=== PATIENT | female | born 1970 | race Hispanic/Latino ===

== ENCOUNTER 2025-10-08 19:37 | Inpatient (IN) | payer OTHER ==
[~2025-10-08 19:37] MED LIST: Etomidate 40 MG (20 mL) VIAL ONE; Iopamidol-370 76% 500 ML MDV (1 ML CHARGE) ONE; Rocuronium Bromide 10 MG/ML (10ML VIAL) ONE
[2025-10-08 22:21] LABS: #Basophils Less than 0.03 10x3/uL (0.0-0.2); #Eosinophils Less than 0.03 10x3/uL (0.0-0.7); #Monocytes 1.10 10x3/uL (0.11-0.59); #Neutrophils 12.08 10x3/uL (1.40-6.50); %Basophils 0.1 % (0.0-1.0); %Eosinophils 0.0 % (0.0-10.0); %Lymphocytes 4.6 % (21.0-51.0); %Monocytes 7.9 % (0.0-10.0); %Neutrophils 87.2 % (42.0-75.0); Hematocrit 44.3 % (36.0-47.0); Hemoglobin 14.7 g/dL (12.0-16.0); Mean Corpuscular Hemoglobin 29.6 pg (27.0-31.0); Mean Corpuscular Volume 89.3 fL (78.0-98.0); Platelet Count 396 10x3/uL (130-400); Red Blood Cell (RBC) Count 4.96 mill/uL (4.20-5.40); White Blood Cell (WBC) Count 13.87 10x3/uL (4.8-10.8)
[2025-10-08] MEDS ORDERED: Ondansetron PF 4 MG/2 ML Vial ONE (22:30)
[2025-10-08 22:37] LABS: ALT (SGPT) 37 U/L (Less than 34); AST (SGOT) 27 U/L (11-34); Albumin 4.3 g/dL (3.1-4.5); Alkaline Phosphatase 115 U/L (40-110); Anion Gap 19 mmol/L (10-20); BUN (Urea Nitrogen) 29 mg/dL (9.8-20.1); Bilirubin, Total 1.5 mg/dL (0.3-1.2); Calc. Creatinine Clearance 0 mL/min (70-130); Calcium 12.2 mg/dL (7.8-10.44); Carbon Dioxide 27 mmol/L (22-29); Chloride 101 mmol/L (98-107); Globulin 4.6 g/dL (2.4-3.5); Glucose 182 mg/dL (70-105); Lipase 6 U/L (8-78); Magnesium 2.3 mg/dL (1.6-2.6); Potassium 4.8 mmol/L (3.5-5.1); Sodium 142 mmol/L (136-145)
[2025-10-09] MEDS: VANCOMYCIN 2 GRAM/400 ML BAG 2 GM in Premix 1 BAG IVPB SCH (03:52)
[2025-10-09 04:16] LABS: #Basophils Less than 0.03 10x3/uL (0.0-0.2); #Eosinophils Less than 0.03 10x3/uL (0.0-0.7); #Monocytes 0.79 10x3/uL (0.11-0.59); #Neutrophils 7.03 10x3/uL (1.40-6.50); %Basophils 0.2 % (0.0-1.0); %Eosinophils 0.0 % (0.0-10.0); %Lymphocytes 8.0 % (21.0-51.0); %Monocytes 9.3 % (0.0-10.0); %Neutrophils 82.3 % (42.0-75.0); Hematocrit 38.7 % (36.0-47.0); Hemoglobin 12.4 g/dL (12.0-16.0); Mean Corpuscular Hemoglobin 29.2 pg (27.0-31.0); Mean Corpuscular Volume 91.1 fL (78.0-98.0); Platelet Count 334 10x3/uL (130-400); Red Blood Cell (RBC) Count 4.25 mill/uL (4.20-5.40); White Blood Cell (WBC) Count 8.54 10x3/uL (4.8-10.8)
[2025-10-09] MEDS ORDERED: HYDROcodone/Acetaminophen 10/325 mg Tablet PO PRN (04:30)
[2025-10-09 04:32] LABS: ALT (SGPT) 27 U/L (Less than 34); AST (SGOT) 17 U/L (11-34); Albumin 3.6 g/dL (3.1-4.5); Alkaline Phosphatase 95 U/L (40-110); Anion Gap 14 mmol/L (10-20); BUN (Urea Nitrogen) 29 mg/dL (9.8-20.1); Bilirubin, Total 1.4 mg/dL (0.3-1.2); Calc. Creatinine Clearance 69 mL/min (70-130); Calcium 10.8 mg/dL (7.8-10.44); Carbon Dioxide 29 mmol/L (22-29); Chloride 105 mmol/L (98-107); Globulin 3.7 g/dL (2.4-3.5); Glucose 151 mg/dL (70-105); Magnesium 2.1 mg/dL (1.6-2.6); Potassium 3.7 mmol/L (3.5-5.1); Sodium 144 mmol/L (136-145)
[2025-10-09] MEDS ORDERED: Acetaminophen 325 MG TAB PO PRN (04:32)
[2025-10-09 04:33] LABS: INR-International Normal Ratio 1.2; PTT 31.8 sec (22.9-36.1); Prothrombin Time 15.2 sec (12.0-14.7)
[2025-10-09] MEDS: Famotidine/PF 20 mg/2ml Vial SLOW IVP SCH (10:34)
[2025-10-09] MEDS: Ondansetron PF 4 MG/2 ML Vial IVP PRN (13:55)
[2025-10-10 04:50] LABS: #Basophils Less than 0.03 10x3/uL (0.0-0.2); #Eosinophils Less than 0.03 10x3/uL (0.0-0.7); #Monocytes 1.10 10x3/uL (0.11-0.59); #Neutrophils 5.81 10x3/uL (1.40-6.50); %Basophils 0.1 % (0.0-1.0); %Eosinophils 0.0 % (0.0-10.0); %Lymphocytes 10.5 % (21.0-51.0); %Monocytes 14.2 % (0.0-10.0); %Neutrophils 75.1 % (42.0-75.0); Hematocrit 34.5 % (36.0-47.0); Hemoglobin 11.1 g/dL (12.0-16.0); Mean Corpuscular Hemoglobin 29.5 pg (27.0-31.0); Mean Corpuscular Volume 91.8 fL (78.0-98.0); Platelet Count 301 10x3/uL (130-400); Red Blood Cell (RBC) Count 3.76 mill/uL (4.20-5.40); White Blood Cell (WBC) Count 7.74 10x3/uL (4.8-10.8)
[2025-10-10 05:02] LABS: ALT (SGPT) 20 U/L (Less than 34); AST (SGOT) 15 U/L (11-34); Albumin 3.0 g/dL (3.1-4.5); Alkaline Phosphatase 73 U/L (40-110); Anion Gap 12 mmol/L (10-20); BUN (Urea Nitrogen) 22 mg/dL (9.8-20.1); Bilirubin, Total 1.0 mg/dL (0.3-1.2); Calc. Creatinine Clearance 103 mL/min (70-130); Calcium 10.2 mg/dL (7.8-10.44); Carbon Dioxide 25 mmol/L (22-29); Chloride 113 mmol/L (98-107); Globulin 3.1 g/dL (2.4-3.5); Glucose 105 mg/dL (70-105); Potassium 3.3 mmol/L (3.5-5.1); Sodium 147 mmol/L (136-145)
[2025-10-10] MEDS ORDERED: MD-Gastroview 120 ML BOT ONE (07:07)
[2025-10-10] MEDS: Potassium Chloride 20 MEQ in Premix 1 BAG IVPB SCH (07:58)
[2025-10-10] MEDS: Heparin 5,000 UNITS/ML VIAL SC SCH ×2 (10:36→14:34)
[2025-10-10] MEDS: FLU (Fluarix Triv) 25-26 (6MOS UP)/PF 45 MCG/0.5 ML Syringe IM ONE (15:50)
[2025-10-10] MEDS ORDERED: Ventilator Sedation Protocol 1 EACH FS SCH (17:12)
[2025-10-10] MEDS: Etomidate 40 MG (20 mL) VIAL IVP SCH (17:22)
[2025-10-10] MEDS: Rocuronium Bromide 10 MG/ML (10ML VIAL) IVP SCH (17:22)
[2025-10-10] MEDS ORDERED: Propofol BOLUS 1,000 MG/100 ML VIAL IV PRN (17:30)
[2025-10-10] MEDS ORDERED: Fentanyl BOLUS 100 ML IVPB PRN (17:30)
[2025-10-10] MEDS ORDERED: DISCONTINUE PREVIOUS NARCOTIC PAIN MEDICATIONS AND BENZODIAZEPINES FS SCH (17:30)
[2025-10-10] MEDS ORDERED: Electrolyte Replacement Protocol 1 EACH FS ONE (18:39)
[2025-10-10] MEDS ORDERED: PHOS-NAK 1 PKT PACK PO PRN (18:45)
[2025-10-10] MEDS ORDERED: Magnesium Sulfate In Water 4 GM in Premix 1 BAG IVPB PRN (18:45)
[2025-10-11 03:57] LABS: #Basophils Less than 0.03 10x3/uL (0.0-0.2); #Eosinophils Less than 0.03 10x3/uL (0.0-0.7); #Monocytes 0.98 10x3/uL (0.11-0.59); #Neutrophils 5.06 10x3/uL (1.40-6.50); %Basophils 0.3 % (0.0-1.0); %Eosinophils 0.1 % (0.0-10.0); %Lymphocytes 17.5 % (21.0-51.0); %Monocytes 13.3 % (0.0-10.0); %Neutrophils 68.7 % (42.0-75.0); Hematocrit 30.8 % (36.0-47.0); Hemoglobin 9.7 g/dL (12.0-16.0); Mean Corpuscular Hemoglobin 29.2 pg (27.0-31.0); Mean Corpuscular Volume 92.8 fL (78.0-98.0); Platelet Count 229 10x3/uL (130-400); Red Blood Cell (RBC) Count 3.32 mill/uL (4.20-5.40); White Blood Cell (WBC) Count 7.37 10x3/uL (4.8-10.8)
[2025-10-11 04:15] LABS: ALT (SGPT) 14 U/L (Less than 34); AST (SGOT) 8 U/L (11-34); Albumin 2.7 g/dL (3.1-4.5); Alkaline Phosphatase 59 U/L (40-110); Anion Gap 12 mmol/L (10-20); BUN (Urea Nitrogen) 18 mg/dL (9.8-20.1); Bilirubin, Total 0.8 mg/dL (0.3-1.2); Calc. Creatinine Clearance 113 mL/min (70-130); Calcium 9.9 mg/dL (7.8-10.44); Carbon Dioxide 23 mmol/L (22-29); Chloride 117 mmol/L (98-107); Globulin 2.8 g/dL (2.4-3.5); Glucose 80 mg/dL (70-105); Potassium 3.6 mmol/L (3.5-5.1); Sodium 148 mmol/L (136-145)
[2025-10-11] MEDS: Albumin 25% 25 GM (100 mL) BOT IVPB SCH (05:18)
[2025-10-11] MEDS ORDERED: MD-Gastroview 120 ML BOT ONE (07:48)
[2025-10-11] MEDS: 1/2 NS w/Potassium 20 mEq 1,000 ML IV SCH (11:01)
[2025-10-11] MEDS: Potassium Chloride 20 MEQ in Premix 1 BAG IVPB SCH (12:52)
[2025-10-11] MEDS: Mupirocin 1 GM TUBE NASAL DECOLONIZATION NASAL SCH (21:26)
[2025-10-11] MEDS: D5 1/2 NS w/20 mEq KCL 1,000 ML IV SCH (21:26)
[2025-10-11 21:54] LABS: Bacteria/HPF None Seen HPF (None Seen); CAUTI Indications for Culture Pelvic or flank pain; Glucose, Urine (Dipstick) Normal (Negative); Leukocyte Negative Leu/uL (Negative); Protein, Urine (Dipstick) 20 mg/dL (Neg-Trace); WBC/HPF 0-3 HPF (0-3)
[2025-10-11 21:55] LABS: Specific Gravity, Urine Greater than 1.050 (1.002-1.036)
[2025-10-11 21:56] LABS: Urine Culture Reflex No No
[2025-10-12 04:33] LABS: #Basophils Less than 0.03 10x3/uL (0.0-0.2); #Eosinophils 0.04 10x3/uL (0.0-0.7); #Monocytes 0.63 10x3/uL (0.11-0.59); #Neutrophils 6.26 10x3/uL (1.40-6.50); %Basophils 0.1 % (0.0-1.0); %Eosinophils 0.5 % (0.0-10.0); %Lymphocytes 14.8 % (21.0-51.0); %Monocytes 7.7 % (0.0-10.0); %Neutrophils 76.5 % (42.0-75.0); Hematocrit 30.8 % (36.0-47.0); Hemoglobin 9.4 g/dL (12.0-16.0); Mean Corpuscular Hemoglobin 29.1 pg (27.0-31.0); Mean Corpuscular Volume 95.4 fL (78.0-98.0); Platelet Count 188 10x3/uL (130-400); Red Blood Cell (RBC) Count 3.23 mill/uL (4.20-5.40); White Blood Cell (WBC) Count 8.18 10x3/uL (4.8-10.8)
[2025-10-12 04:51] LABS: ALT (SGPT) 19 U/L (Less than 34); AST (SGOT) 14 U/L (11-34); Albumin 2.9 g/dL (3.1-4.5); Alkaline Phosphatase 57 U/L (40-110); Anion Gap 11 mmol/L (10-20); BUN (Urea Nitrogen) 19 mg/dL (9.8-20.1); Bilirubin, Total 0.7 mg/dL (0.3-1.2); Calc. Creatinine Clearance 121 mL/min (70-130); Calcium 10.1 mg/dL (7.8-10.44); Carbon Dioxide 24 mmol/L (22-29); Chloride 118 mmol/L (98-107); Globulin 2.8 g/dL (2.4-3.5); Glucose 90 mg/dL (70-105); Potassium 3.7 mmol/L (3.5-5.1); Sodium 149 mmol/L (136-145)
[2025-10-12] MEDS: Mineral Oil ENEMA PR SCH ×2 (09:00→13:42)
[2025-10-12] MEDS ORDERED: PROPOFOL 0 ML ONE ×2 (09:57→09:59)
[2025-10-12] MEDS ORDERED: PHENYLEPHRINE-NS 100 MCG/ML 10 ML SYRINGE ONE ×2 (09:59→17:46)
[2025-10-12] MEDS ORDERED: PROPOFOL 20 ML ONE ×2 (11:56→16:07)
[2025-10-12] MEDS ORDERED: PROPOFOL 200 MG/20 ML VIAL ONE (12:45)
[2025-10-12] MEDS ORDERED: fentaNYL PF 100 MCG/2 ML SYRINGE ONE (16:07)
[2025-10-12] MEDS ORDERED: Ketamine In 0.9 % NaCl 50 MG/5 ML SYRINGE ONE (16:07)
[2025-10-12] MEDS ORDERED: Phenylephrine 40 MG/NS 250 ML 250 ML ONE (16:07)
[2025-10-12] MEDS ORDERED: CEFAZOLIN 1 GM VIAL ONE (16:58)
[2025-10-12] MEDS ORDERED: metroNIDAZOLE 500 MG (100 mL) BAG ONE (16:58)
[2025-10-12] MEDS ORDERED: Rocuronium Bromide 10 MG/ML (10ML VIAL) ONE (17:03)
[2025-10-12 19:42] LABS: Actual Bicarbonate (HCO3a) 20.7 mEq/L (22-28); Base Excess (BEa) -2.3 mEq/L (-2.0 to +3.0); CO2 Tension 30.3 mmHg (35.0-45.0); Calcium, Ionized (arterial) 1.27 mmol/L (1.12-1.30); Hematocrit-ABG 35 % (36.0-47.0); Hemoglobin (Hb) 11.8 g/dL (12.0-16.0); O2 Tension (PaO2), arterial 68.1 mmHg (80.0-100.0); Potassium - ABG Lab 3.15 mmol/L (3.70-5.30); pH, Arterial 7.453 (7.35-7.45)
[2025-10-12 19:43] LABS: Puncture Site Right Radial artery
[2025-10-12] MEDS: D5 1/2 NS w/20 mEq KCL 1,000 ML IV SCH (20:45)
[2025-10-13 04:21] LABS: #Basophils 0.03 10x3/uL (0.0-0.2); #Eosinophils Less than 0.03 10x3/uL (0.0-0.7); #Monocytes 0.51 10x3/uL (0.11-0.59); #Neutrophils 15.85 10x3/uL (1.40-6.50); %Basophils 0.2 % (0.0-1.0); %Eosinophils 0.1 % (0.0-10.0); %Lymphocytes 4.1 % (21.0-51.0); %Monocytes 3.0 % (0.0-10.0); %Neutrophils 92.2 % (42.0-75.0); Hematocrit 32.0 % (36.0-47.0); Hemoglobin 10.2 g/dL (12.0-16.0); Mean Corpuscular Hemoglobin 29.8 pg (27.0-31.0); Mean Corpuscular Volume 93.6 fL (78.0-98.0); Platelet Count 204 10x3/uL (130-400); Red Blood Cell (RBC) Count 3.42 mill/uL (4.20-5.40); White Blood Cell (WBC) Count 17.17 10x3/uL (4.8-10.8)
[2025-10-13 04:41] LABS: ALT (SGPT) 17 U/L (Less than 34); AST (SGOT) 15 U/L (11-34); Albumin 2.7 g/dL (3.1-4.5); Alkaline Phosphatase 50 U/L (40-110); Anion Gap 7 mmol/L (10-20); BUN (Urea Nitrogen) 13 mg/dL (9.8-20.1); Bilirubin, Total 1.0 mg/dL (0.3-1.2); Calc. Creatinine Clearance 122 mL/min (70-130); Calcium 8.7 mg/dL (7.8-10.44); Carbon Dioxide 25 mmol/L (22-29); Chloride 116 mmol/L (98-107); Globulin 2.2 g/dL (2.4-3.5); Glucose 127 mg/dL (70-105); Potassium 3.6 mmol/L (3.5-5.1); Sodium 144 mmol/L (136-145)
[2025-10-14 05:30] LABS: #Basophils Less than 0.03 10x3/uL (0.0-0.2); #Eosinophils 0.10 10x3/uL (0.0-0.7); #Monocytes 0.62 10x3/uL (0.11-0.59); #Neutrophils 13.57 10x3/uL (1.40-6.50); %Basophils 0.1 % (0.0-1.0); %Eosinophils 0.6 % (0.0-10.0); %Lymphocytes 6.5 % (21.0-51.0); %Monocytes 4.0 % (0.0-10.0); %Neutrophils 87.7 % (42.0-75.0); Hematocrit 28.4 % (36.0-47.0); Hemoglobin 9.0 g/dL (12.0-16.0); Mean Corpuscular Hemoglobin 29.6 pg (27.0-31.0); Mean Corpuscular Volume 93.4 fL (78.0-98.0); Platelet Count 180 10x3/uL (130-400); Red Blood Cell (RBC) Count 3.04 mill/uL (4.20-5.40); White Blood Cell (WBC) Count 15.48 10x3/uL (4.8-10.8)
[2025-10-14 05:52] LABS: ALT (SGPT) 12 U/L (Less than 34); AST (SGOT) 11 U/L (11-34); Albumin 2.2 g/dL (3.1-4.5); Alkaline Phosphatase 58 U/L (40-110); Anion Gap 2 mmol/L (10-20); BUN (Urea Nitrogen) 10 mg/dL (9.8-20.1); Bilirubin, Total 0.7 mg/dL (0.3-1.2); Calc. Creatinine Clearance 146 mL/min (70-130); Calcium 8.2 mg/dL (7.8-10.44); Carbon Dioxide 20 mmol/L (22-29); Chloride 120 mmol/L (98-107); Globulin 2.3 g/dL (2.4-3.5); Glucose 103 mg/dL (70-105); Potassium 3.7 mmol/L (3.5-5.1); Sodium 138 mmol/L (136-145)
[2025-10-15 04:37] LABS: #Basophils Less than 0.03 10x3/uL (0.0-0.2); #Eosinophils 0.12 10x3/uL (0.0-0.7); #Monocytes 0.78 10x3/uL (0.11-0.59); #Neutrophils 12.02 10x3/uL (1.40-6.50); %Basophils 0.1 % (0.0-1.0); %Eosinophils 0.9 % (0.0-10.0); %Lymphocytes 5.5 % (21.0-51.0); %Monocytes 5.7 % (0.0-10.0); %Neutrophils 87.3 % (42.0-75.0); Hematocrit 28.6 % (36.0-47.0); Hemoglobin 9.3 g/dL (12.0-16.0); Mean Corpuscular Hemoglobin 29.8 pg (27.0-31.0); Mean Corpuscular Volume 91.7 fL (78.0-98.0); Platelet Count 202 10x3/uL (130-400); Red Blood Cell (RBC) Count 3.12 mill/uL (4.20-5.40); White Blood Cell (WBC) Count 13.77 10x3/uL (4.8-10.8)
[2025-10-15 05:03] LABS: ALT (SGPT) 10 U/L (Less than 34); AST (SGOT) 10 U/L (11-34); Albumin 2.1 g/dL (3.1-4.5); Alkaline Phosphatase 71 U/L (40-110); Anion Gap 5 mmol/L (10-20); BUN (Urea Nitrogen) 6 mg/dL (9.8-20.1); Bilirubin, Total 0.8 mg/dL (0.3-1.2); Calc. Creatinine Clearance 160 mL/min (70-130); Calcium 8.2 mg/dL (7.8-10.44); Carbon Dioxide 21 mmol/L (22-29); Chloride 112 mmol/L (98-107); Globulin 2.7 g/dL (2.4-3.5); Glucose 109 mg/dL (70-105); Potassium 3.7 mmol/L (3.5-5.1); Sodium 134 mmol/L (136-145)
[2025-10-15 07:12] VITALS: BMI 27.2
[2025-10-15] MEDS: Clotrimazole 2% 3 Day Vag Cr 22.2 GM TUBE VAG SCH (17:16)
[2025-10-16 05:29] LABS: #Basophils Less than 0.03 10x3/uL (0.0-0.2); #Eosinophils 0.21 10x3/uL (0.0-0.7); #Monocytes 0.66 10x3/uL (0.11-0.59); #Neutrophils 9.67 10x3/uL (1.40-6.50); %Basophils 0.1 % (0.0-1.0); %Eosinophils 1.9 % (0.0-10.0); %Lymphocytes 6.4 % (21.0-51.0); %Monocytes 5.8 % (0.0-10.0); %Neutrophils 85.4 % (42.0-75.0); Hematocrit 24.7 % (36.0-47.0); Hemoglobin 8.1 g/dL (12.0-16.0); Mean Corpuscular Hemoglobin 29.5 pg (27.0-31.0); Mean Corpuscular Volume 89.8 fL (78.0-98.0); Platelet Count 217 10x3/uL (130-400); Red Blood Cell (RBC) Count 2.75 mill/uL (4.20-5.40); White Blood Cell (WBC) Count 11.32 10x3/uL (4.8-10.8)
[2025-10-16 05:48] LABS: ALT (SGPT) 8 U/L (Less than 34); AST (SGOT) 10 U/L (11-34); Albumin 1.8 g/dL (3.1-4.5); Alkaline Phosphatase 65 U/L (40-110); Anion Gap 2 mmol/L (10-20); BUN (Urea Nitrogen) 5 mg/dL (9.8-20.1); Bilirubin, Total 0.7 mg/dL (0.3-1.2); Calc. Creatinine Clearance 166 mL/min (70-130); Calcium 7.9 mg/dL (7.8-10.44); Carbon Dioxide 22 mmol/L (22-29); Chloride 115 mmol/L (98-107); Globulin 2.7 g/dL (2.4-3.5); Glucose 112 mg/dL (70-105); Potassium 2.8 mmol/L (3.5-5.1); Sodium 136 mmol/L (136-145)
[2025-10-16] MEDS: Potassium Chloride 20 MEQ in Premix 1 BAG IVPB PRN (06:56)
[2025-10-16] MEDS: Potassium Chloride 20 MEQ in Premix 1 BAG IVPB SCH ×2 (09:17→09:19)
[2025-10-16 09:55] VITALS: BMI 27.3
[2025-10-16] MEDS: Bisacodyl 10 MG SUPP PR SCH (10:30)
[2025-10-17 05:48] LABS: #Basophils Less than 0.03 10x3/uL (0.0-0.2); #Eosinophils 0.29 10x3/uL (0.0-0.7); #Monocytes 0.66 10x3/uL (0.11-0.59); #Neutrophils 7.65 10x3/uL (1.40-6.50); %Basophils 0.2 % (0.0-1.0); %Eosinophils 3.0 % (0.0-10.0); %Lymphocytes 10.3 % (21.0-51.0); %Monocytes 6.8 % (0.0-10.0); %Neutrophils 79.1 % (42.0-75.0); Hematocrit 23.7 % (36.0-47.0); Hemoglobin 7.9 g/dL (12.0-16.0); Mean Corpuscular Hemoglobin 30.2 pg (27.0-31.0); Mean Corpuscular Volume 90.5 fL (78.0-98.0); Platelet Count 233 10x3/uL (130-400); Red Blood Cell (RBC) Count 2.62 mill/uL (4.20-5.40); White Blood Cell (WBC) Count 9.68 10x3/uL (4.8-10.8)
[2025-10-17 06:10] LABS: ALT (SGPT) Less than 7 U/L (Less than 34); AST (SGOT) 9 U/L (11-34); Albumin 1.7 g/dL (3.1-4.5); Alkaline Phosphatase 55 U/L (40-110); Anion Gap 8 mmol/L (10-20); BUN (Urea Nitrogen) 4 mg/dL (9.8-20.1); Bilirubin, Total 0.5 mg/dL (0.3-1.2); Calc. Creatinine Clearance 170 mL/min (70-130); Calcium 8.1 mg/dL (7.8-10.44); Carbon Dioxide 21 mmol/L (22-29); Chloride 113 mmol/L (98-107); Globulin 2.7 g/dL (2.4-3.5); Glucose 110 mg/dL (70-105); Potassium 3.3 mmol/L (3.5-5.1); Sodium 139 mmol/L (136-145)
[2025-10-17] MEDS: Enoxaparin 40 MG (0.4 mL) SYRINGE SC SCH (08:48)
[2025-10-18 05:30] LABS: #Basophils 0.03 10x3/uL (0.0-0.2); #Eosinophils 0.12 10x3/uL (0.0-0.7); #Monocytes 0.67 10x3/uL (0.11-0.59); #Neutrophils 8.74 10x3/uL (1.40-6.50); %Basophils 0.3 % (0.0-1.0); %Eosinophils 1.2 % (0.0-10.0); %Lymphocytes 7.6 % (21.0-51.0); %Monocytes 6.4 % (0.0-10.0); %Neutrophils 83.9 % (42.0-75.0); Hematocrit 25.6 % (36.0-47.0); Hemoglobin 8.4 g/dL (12.0-16.0); Mean Corpuscular Hemoglobin 29.3 pg (27.0-31.0); Mean Corpuscular Volume 89.2 fL (78.0-98.0); Platelet Count 258 10x3/uL (130-400); Red Blood Cell (RBC) Count 2.87 mill/uL (4.20-5.40); White Blood Cell (WBC) Count 10.41 10x3/uL (4.8-10.8)
[2025-10-18 05:47] LABS: Anion Gap 10 mmol/L (10-20); BUN (Urea Nitrogen) Less than 4 mg/dL (9.8-20.1); Calc. Creatinine Clearance 177 mL/min (70-130); Carbon Dioxide 21 mmol/L (22-29); Chloride 109 mmol/L (98-107); Potassium 3.0 mmol/L (3.5-5.1); Sodium 137 mmol/L (136-145)
[2025-10-18 05:48] LABS: ALT (SGPT) 8 U/L (Less than 34); AST (SGOT) 13 U/L (11-34); Albumin 1.8 g/dL (3.1-4.5); Alkaline Phosphatase 52 U/L (40-110); Bilirubin, Total 0.5 mg/dL (0.3-1.2); Calcium 8.2 mg/dL (7.8-10.44); Globulin 2.8 g/dL (2.4-3.5); Glucose 109 mg/dL (70-105)
[2025-10-18] MEDS: D5 1/2 NS w/20 mEq KCL 1,000 ML IV SCH (09:55)
[2025-10-19 15:13] VITALS: BP 127/79; TEMP 97.9
== END 2025-10-19 15:00 | disposition home or self-care (01) | DRG 330 ==
LOC: ERS 19:37 → 2NO 10-09 01:15 → CCU 10-10 16:46 → T4-A 10-15 15:44
PROVIDERS: ADMIT Surgery; ATTEND Surgery
PROC: 3E03329 Introduction of Other Anti-infective into Peripheral Vein, Percutaneous Approach (ICD-10-PCS; 2025-10-09)
PROC: 3E02340 Introduction of Influenza Vaccine into Muscle, Percutaneous Approach (ICD-10-PCS; 2025-10-09)
PROC: 0BH17EZ Insertion of Endotracheal Airway into Trachea, Via Natural or Artificial Opening (ICD-10-PCS; 2025-10-10)
PROC: 5A1945Z Respiratory Ventilation, 24-96 Consecutive Hours (ICD-10-PCS; 2025-10-10)
PROC: 0DBL0ZZ Excision of Transverse Colon, Open Approach (ICD-10-PCS; principal; 2025-10-12)
PROC: 4A033R1 Measurement of Arterial Saturation, Peripheral, Percutaneous Approach (ICD-10-PCS; 2025-10-12)
DX: C18.9 Malignant neoplasm of colon, unspecified (principal); E87.0 Hyperosmolality and hypernatremia; K56.609 Unspecified intestinal obstruction, unspecified as to partial versus complete obstruction; K81.0 Acute cholecystitis; F84.0 Autistic disorder; N17.9 Acute kidney failure, unspecified; E87.6 Hypokalemia; Z88.0 Allergy status to penicillin; Z23 Encounter for immunization
CPT/HCPCS: 36415; 36416; 36600; 71045; 74018; 74177; 74250; 76705; 80053; 81001; 82805; 83605; 83690; 83735; 84100; 84484; 85025; 85610; 85730; 86850; 86900; 86901; 87040; 88305; 88309; 88341; 88342; 93005; 94002; 94003; 96374; 96375; A4649; J0690; J0692; J1308; J1644; J1650; J2250; J2405; J2543; J2704; J3375; J3480; J3490; J7030; J7120; P9045; P9047; Q9963; Q9967